=== PATIENT | male | born 1985 | race Two or more races ===

== ENCOUNTER 2017-02-11 02:29 | Emergency (ER) | payer MEDICAID ==
[~2017-02-11] VITALS: Ht 172.7 cm; Wt 71.2 kg
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
--- NOTE | 2017-02-11 02:58 | NUR ---
DR RAMSEY AT BEDSIDE FOR EVAL.
--- NOTE | 2017-02-11 03:06 | NUR ---
Patient discharged to home in stable condition. Written and verbal after care instructions given. Patient verbalizes understanding of instruction. Patient is ambulatory with steady gait, accompanied by family. No further complaints.
[2017-02-11 03:07] VITALS: BP 115/71
== END 2017-02-11 03:08 | disposition home or self-care (01) ==
LOC: ER 02:29
DX: M25.511 Pain in right shoulder (principal); F17.200 Nicotine dependence, unspecified, uncomplicated; J45.909 Unspecified asthma, uncomplicated; V49.50XA Passenger injured in collision with unspecified motor vehicles in traffic accident, initial encounter; Y93.89 Activity, other specified; Y92.89 Other specified places as the place of occurrence of the external cause; Y99.9 Unspecified external cause status
CPT/HCPCS: 99283; A4606; Z7610

== ENCOUNTER 2018-08-28 22:25 | Emergency (ER) | payer MEDICAID ==
[~2018-08-28] VITALS: Ht 172.7 cm; Wt 72.6 kg
--- NOTE | 2018-08-28 22:40 | NUR ---
Pt came in c/o pain, swelling and redness on his 3rd finger, left hand. He is A, O/4, walks with steady gait, on RA, in no distress.
--- NOTE | 2018-08-28 22:50 | NUR ---
I & D done by Dr. Bell at . pt tolerated procedure.
[2018-08-28] MEDS ORDERED: LIDOCAINE 2% 20 ML MDV ONE (22:59)
[2018-08-28] MEDS ORDERED: SODIUM BICARBONATE 5 ML VIAL ONE (22:59)
[2018-08-28] MEDS ORDERED: SULFAMETH/TRIMETH 800/160 MG 1 UDTAB TABLET PO ONE ×2 (23:00→23:06)
[2018-08-28] MEDS ORDERED: SODIUM BICARBONATE 5 ML VIAL TP ONE (23:00)
[2018-08-28] MEDS ORDERED: LIDOCAINE 2% 20 ML MDV TP ONE (23:00)
--- NOTE | 2018-08-28 23:40 | NUR ---
Placed tube gauze on affected finger. Notified of DC.
[2018-08-28 23:47] VITALS: BP 137/69
--- NOTE | 2018-08-28 23:48 | NUR ---
Patient discharged to home in stable condition. Written and verbal after care instructions and presciption given. Patient verbalizes understanding of instruction. Pt ambulatory with a steady gait
== END 2018-08-28 23:49 | disposition home or self-care (01) ==
LOC: ER 22:40
DX: L03.012 Cellulitis of left finger (principal); J45.909 Unspecified asthma, uncomplicated; F17.200 Nicotine dependence, unspecified, uncomplicated
CPT/HCPCS: A4606; A6402; J3490; Z7610

== ENCOUNTER 2018-10-07 20:21 | Emergency (ER) | payer MEDICAID ==
--- NOTE | 2018-10-07 21:27 | NUR ---
CALLED NO ANSWER.
== END 2018-10-07 21:44 | disposition left against medical advice (07) ==
LOC: ER 20:25
DX: Z53.21 Procedure and treatment not carried out due to patient leaving prior to being seen by health care provider (principal)

== ENCOUNTER 2019-12-20 12:43 | Emergency (ER) | payer MEDICAID ==
[~2019-12-20] VITALS: Ht 180.3 cm; Wt 83.9 kg
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
[2019-12-20] MEDS ORDERED: OLANZAPINE 10 MG VIAL IM ONE (12:59)
[2019-12-20] MEDS: OLANZAPINE 5 MG TABLET PO ONE (13:05)
[2019-12-20] MEDS: OLANZAPINE 10 MG VIAL IM ONE (13:05)
[2019-12-20 13:09] LABS: BASOPHILS # (AUTO) 0.1 /CMM (0.0-0.2); BASOPHILS % (AUTO) 0.6 % (0.0-2.0); EOSINOPHILS % (AUTO) 1.2 % (0.0-6.0); HEMATOCRIT 44 % (39-51); HEMOGLOBIN 14.4 g/dL (13.5-17.5); LYMPHOCYTES # (AUTO) 3.9 /CMM (0.8-4.8); LYMPHOCYTES % (AUTO) 35.5 % (20.0-44.0); MEAN CORPUSCULAR HGB CONC 33 g/dl (31.0-36.0); MEAN CORPUSCULAR VOLUME 84 fL (80-96); MONOCYTES # (AUTO) 0.9 /CMM (0.1-1.30); MONOCYTES % (AUTO) 8.4 % (2.0-12.0); NEUTROPHILS % (AUTO) 54.3 % (43.0-81.0); PLATELET COUNT (AUTO) 244 /CMM (150-450); WHITE BLOOD COUNT (AUTO) 11.1 K/uL (4.3-11.0)
[2019-12-20 13:22] LABS: ALBUMIN 4.1 g/dL (3.4-5.0); BILIRUBIN,DIRECT 0.1 mg/dL (0.0-0.2); BILIRUBIN,TOTAL 0.6 mg/dL (0.2-1.0); CALCIUM, SERUM 8.8 mg/dL (8.5-10.1); CREATININE 0.9 mg/dL (0.6-1.3); POTASSIUM 3.8 mmol/L (3.5-5.1); SALICYLATE 3.4 mg/dL (2.8-20.0); TOTAL PROTEIN, SERUM 7.5 g/dL (6.4-8.2)
[2019-12-20 13:28] LABS: APPEARANCE,URINE Clear (CLEAR); BILIRUBIN,URINE Negative (NEGATIVE); BLOOD, URINE Negative Ery/uL (NEGATIVE); COLOR,URINE Yellow (YELLOW); KETONES,URINE Negative (NEGATIVE); LEUKOCYTE ESTERASE ,URINE Negative (NEGATIVE); NITRITE, URINE Negative (NEGATIVE); PH,URINE 5.5 (5.0-8.0); PROTEIN,URINE Negative (NEGATIVE); UGLUCOSE Negative (NEGATIVE); UROBILINOGEN,URINE 0.2 EU/dL (0.2)
--- NOTE | 2019-12-20 15:01 | NUR ---
PATIENT IN BED ASLEEP, EASILY AROUSABLE BY VOICE. HOOKED TO MONITOR, WILL CONTINUE TO MONITOR ACCORDINGLY
--- NOTE | 2019-12-20 16:42 | NUR ---
PATIENT IN BED ASLEEP, EASILY AROUSABLE BY VOICE. HOOKED TO MONITOR, WILL CONTINUE TO MONITOR ACCORDINGLY
[2019-12-20 17:22] VITALS: BP 99/58
--- NOTE | 2019-12-20 18:21 | NUR ---
PATIENT AWAKE, DENIES SI AND HI. MADE AWARE
--- NOTE | 2019-12-20 18:42 | NUR ---
PATIENT ABLE TO AMBULATE W STEADY GAIT, AWARE
--- NOTE | 2019-12-20 19:00 | NUR ---
PATIENT WALKED OUT OF FACILITY. AWARE
--- NOTE | 2019-12-20 19:02 | NUR ---
IV removed. Catheter intact and site benign. Pressure and 4x4 applied to site. No bleeding noted.
== END 2019-12-20 19:00 | disposition left against medical advice (07) ==
LOC: ER 12:47
DX: R45.1 Restlessness and agitation (principal); F10.129 Alcohol abuse with intoxication, unspecified; J45.909 Unspecified asthma, uncomplicated; F32.9 Major depressive disorder, single episode, unspecified; F17.200 Nicotine dependence, unspecified, uncomplicated; Y90.7 Blood alcohol level of 200-239 mg/100 ml
CPT/HCPCS: 36415; 80048; 80076; 80305; 80307; 80329; 81001; 85025; 96372; 99283; G0480; J3490; 81000-TC

== ENCOUNTER 2020-05-06 23:50 | Emergency (ER) | payer MEDICAID ==
[~2020-05-06] VITALS: Ht 172.7 cm; Wt 68.0 kg
[2020-05-06 23:50] VITALS: BP 103/64
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
[2020-05-07] MEDS ORDERED: TDAP [DIPH/PERTUSSIS/TET] 0.5 ML VIAL IM ONE ×2 (00:25→00:30)
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
--- NOTE | 2020-05-07 00:59 | NUR ---
Patient eloped from facility. ER MD notified.
== END 2020-05-07 01:01 | disposition left against medical advice (07) ==
LOC: ER 23:50
DX: S51.012A Laceration without foreign body of left elbow, initial encounter (principal); S51.812A Laceration without foreign body of left forearm, initial encounter; S01.111A Laceration without foreign body of right eyelid and periocular area, initial encounter; R51 Headache; J45.909 Unspecified asthma, uncomplicated; F17.200 Nicotine dependence, unspecified, uncomplicated; Y00.XXXA Assault by blunt object, initial encounter; Y93.89 Activity, other specified; Y92.89 Other specified places as the place of occurrence of the external cause; Y99.8 Other external cause status
CPT/HCPCS: 70450; 99284; A6403; 90715

== ENCOUNTER 2020-06-10 17:56 | Emergency (ER) | payer MEDICAID ==
[~2020-06-10] VITALS: Ht 170.2 cm; Wt 77.1 kg
[2020-06-10 18:09] VITALS: BP 120/83
[2020-06-10] MEDS ORDERED: ACETAMINOPHEN ES 500 MG TABLET ONE (18:31)
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
[2020-06-10] MEDS: ACETAMINOPHEN 325 MG TABLET PO ONE (19:02)
--- NOTE | 2020-06-10 19:14 | NUR ---
Khadar henderson in [facility] - 06/10/20 at 2317 by RONNELL ...
--- NOTE | 2020-06-10 19:30 | NUR ---
Patient eloped from facility. Chato BURTON notified.
--- NOTE | 2020-06-10 22:30 | NUR ---
Khadar henderson in [facility] - 06/10/20 at 2305 by RONNELL US AT BEDSIDE
== END 2020-06-10 23:18 | disposition left against medical advice (07) ==
LOC: ER 17:56
DX: S01.01XA Laceration without foreign body of scalp, initial encounter (principal); M79.632 Pain in left forearm; J45.909 Unspecified asthma, uncomplicated; F17.200 Nicotine dependence, unspecified, uncomplicated; Z60.2 Problems related to living alone; Y00.XXXA Assault by blunt object, initial encounter; Y93.89 Activity, other specified; Y92.89 Other specified places as the place of occurrence of the external cause; Y99.8 Other external cause status
CPT/HCPCS: 70450; 99284; A6403